=== PATIENT | female | born 1965 | race African-American/Black ===

== ENCOUNTER 2023-01-30 08:30 | Emergency (ER) | payer BC ==
[2023-01-30 08:50] VITALS: RESP 18; BMI 24.9
[2023-01-30] MEDS ORDERED: DEXAMETHASONE SOD PHOSPHATE 10 MG/1 ML VIAL IM ONE (09:33)
[2023-01-30] MEDS ORDERED: KETOROLAC TROMETHAMINE 30 MG/1 ML VIAL IM ONE (09:33)
[2023-01-30] MEDS ORDERED: DEXAMETHASONE SOD PHOSPHATE 10 MG/1 ML VIAL ONE (09:40)
[2023-01-30] MEDS ORDERED: KETOROLAC TROMETHAMINE 30 MG/1 ML VIAL ONE (09:40)
[2023-01-30 11:29] VITALS: BP 145/78; PULSE 76; TEMP 98.6
== END 2023-01-30 11:50 | disposition home or self-care (01) ==
LOC: JERFT 08:30 → JER 08:30 → JERFT 11:50
PROC: 3E0233Z Introduction of Anti-inflammatory into Muscle, Percutaneous Approach (ICD-10-PCS; principal; 2023-01-30)
PROC: 3E0233Z Introduction of Anti-inflammatory into Muscle, Percutaneous Approach (ICD-10-PCS; 2023-01-30)
DX: M25.562 Pain in left knee (principal); M54.50 Low back pain, unspecified
CPT/HCPCS: 72131-TC; 73562-TC-LT-FY; 99284-25; J1100